=== PATIENT | male | born 1945 | race Caucasian/White ===

== ENCOUNTER → 2016-05-23 | Outpatient (CLI) | payer OTHER, MEDICARE ==
[2016-05-23 10:25] LABS: Partial Thromboplastin Time 26.2 sec (22.0-30.0); Prothrombin Time 10.6 sec (9.0-12.0)
[2016-05-23 10:35] LABS: Basophils % (A) 1 %; CHCM 34.2; Eosinophils # (A) 0.2 k/uL (0-0.7); Eosinophils % (A) 3 %; HCT 46.7 % (39.0-53.0); HDW 2.31; HGB 15.8 gm/dL (13.0-17.5); Luc # (Auto) 0.14; Luc % (Auto) 3; Lymphocytes # (A) 2.3 k/uL (1.0-4.8); Lymphocytes % (A) 43 %; MCH 31.7 pg (25.0-35.0); MCHC 33.7 g/dL (31.0-37.0); MCV 93.9 fL (80.0-100.0); Mean Platelet Volume 7.4; Monocytes # (A) 0.3 k/uL (0-1.0); Monocytes % (A) 6 %; Neutrophils # (A) 2.4 k/uL (1.3-7.7); Neutrophils % (A) 45 %; RBC 4.97 m/uL (4.30-5.90); RDW 12.2 % (11.5-15.5); WBC 5.3 k/uL (3.8-10.6); WBC (Perox) 5.45
[2016-05-23 10:37] LABS: ALT 56 U/L (21-72); AST 33 U/L (17-59); Alkaline Phosphatase 62 U/L (38-126); Anion Gap 10 mmol/L; Blood Urea Nitrogen 13 mg/dL (9-20); Calcium 9.7 mg/dL (8.4-10.2); Carbon Dioxide 30 mmol/L (22-30); Chloride 103 mmol/L (98-107); Cholesterol 165 mg/dL (<200); Glucose 90 mg/dL (74-99); HDL Cholesterol 46 mg/dL (40-60); Non-African American GFR(MDRD) >60 (>60 ml/min/1.73 sqM); Potassium 4.2 mmol/L (3.5-5.1); Sodium 143 mmol/L (137-145); Total Bilirubin 1.5 mg/dL (0.2-1.3); Triglycerides 49 mg/dL (<150)
[2016-05-23 10:57] LABS: Appearance,Urine Clear (Clear); Bilirubin,Urine Negative (Negative); Glucose,Urine (UA) Negative (Negative); Ketones,Urine Negative (Negative); Leukocyte Esterase,Urine Negative (Negative); Nitrite,Urine Negative (Negative); PH, Urine 7.5 (5.0-8.0); Protein,Urine Negative (Negative); UA Billing (MACRO vs. MICRO) CHEM; Urobilinogen,Urine <2.0 mg/dL (<2.0)
[2016-05-23 13:55] LABS: Erythrocyte Sedimentation Rate 5 mm/hr (0-15)
== END | disposition home or self-care (01) ==
LOC: LABPAT 09:43
PROVIDERS: ATTEND Orthopaedic Surgery
DX: Z01.812 Encounter for preprocedural laboratory examination (principal); Z12.5 Encounter for screening for malignant neoplasm of prostate
CPT/HCPCS: 80061; 80053; 85652; 85025; 85610; 85730; 81003; 87070; G0103

== ENCOUNTER 2016-06-05 09:35 | Inpatient (IN) | payer MEDICARE, OTHER ==
[2016-05-29 09:18] VITALS: BMI 26.4
[~2016-06-05 09:35] MED LIST: ACETAMINOPHEN TAB 500 MG TAB PO ONE; DEXAMETHASONE SOD PHOSPHATE 10 MG/ML 1 ML VIAL IV ONE; HYDROmorphone 1 MG/ML 1 ML SYRINGE IVP PRN; LIDOCAINE 1% 20 ML VIAL (10MG/ML) FOR IV START INTRADERMA PRN; MELOXICAM 7.5 MG TAB PO ONE; MIDAZOLAM 2 MG/2 ML VIAL IV PRN; ONDANSETRON 4 MG/2 ML VIAL IVP ONE; SCOPOLAMINE 1.5MG/72HR PATCH TRANSDERM ONE; TRANEXAMIC ACID 1,000 MG in SODIUM CHLORIDE 0.9% 100 ML IVPB ONE; ceFAZolin 2 GM in SODIUM CHLORIDE 0.9% 100 ML IVPB ONE
[2016-06-05] MEDS ORDERED: LIDOCAINE 1% 20 ML VIAL (10MG/ML) FOR IV START INTRADERMA ONE (10:24)
[2016-06-05] MEDS: LACTATED RINGERS 1,000 ML IV SCH (10:24)
[2016-06-05] MEDS ORDERED: fentaNYL (PF) 50 MCG/ML 2 ML AMP IV ONE ×2 (10:35)
[2016-06-05] MEDS ORDERED: MIDAZOLAM 2 MG/2 ML VIAL IVP ONE (10:35)
[2016-06-05] MEDS ORDERED: ROPIVACAINE 1,100 MG, SODIUM CHLORIDE 0.9% 330 ML MISCELLANE PRN ×2 (11:04)
--- NOTE | 2016-06-05 11:06 | P.ONQ ---
Anesthesiology Proc Note - PNB - Peripheral Nerve Block Performed Left Adductor Canal Infusion Procedure Start Time: 10:30 Procedure Stop Time: 10:45 Indication: Acute Post-Operative Pain, Analgesia Sedation Type: Sedate with meaningful contact maintained Preparation: Sterile Prep Position: Supine Catheter Depth at Skin (cm): 8 Catheter: Indwelling Needle Types: On-Q Needle Size: 100mm (4") Needle Gauge: 18 Technique: Ultrasound Injectate: 0.5% Ropivacaine (see comment for volume) Blood Aspirated: No Pain Paresthesia on Injection Noted: No Resistance on Injection: Normal Events: Uneventful and Well Tolerated
[2016-06-05] MEDS ORDERED: PHENYLEPHRINE-0.9% NACL SYG 1 MG/10 ML SYRINGE ONE (12:23)
[2016-06-05] MEDS ORDERED: ePHEDrine 50 MG/ML 1 ML AMP ONE (12:23)
[2016-06-05] MEDS ORDERED: PROPOFOL 10 MG/ML 20 ML VIAL IV ONE (12:23)
[2016-06-05] MEDS ORDERED: SODIUM CHLORIDE 0.9% 100 ML BAG ONE (12:23)
[2016-06-05] MEDS ORDERED: fentaNYL (PF) 50 MCG/ML 2 ML AMP ONE (12:23)
[2016-06-05] MEDS ORDERED: TRANEXAMIC ACID 1,000 MG/10 ML VIAL ONE (12:23)
[2016-06-05] MEDS ORDERED: MIDAZOLAM 2 MG/2 ML VIAL ONE (12:23)
[2016-06-05] MEDS ORDERED: LACTATED RINGERS 1,000 ML IV ONE ×2 (12:49→13:31)
[2016-06-05] MEDS ORDERED: ceFAZolin 3,000 MG in SODIUM CHLORIDE 0.9% IRRIGATIO 3,000 ML IRRIGATION ONE (12:50)
[2016-06-05] MEDS: ROPIVACAINE 246.25 MG, EPINEPHrine 0.5 MG, KETOROLAC 30 MG, cloNIDine HCL/PF 80 MCG, WA... MISCELLANE ONE ×10 (12:52→13:39)
--- NOTE | 2016-06-05 14:04 | P.OP ---
Date of Procedure: 06/05/16 Preoperative Diagnosis: Severe osteoarthritis of the left knee Postoperative Diagnosis: Severe osteoarthritis left knee Procedure(s) Performed: Left total knee arthroplasty Implants: Vallejo [employer] Nephew Oxinium femoral component size 6, left Vallejo [employer] Nephew Melita II left nonporous tibial baseplate size 6 [employer]le[employer] Nephew size 9 mm Legion XLPE high flexion articular insert, size 5-6 [employer]le[employer]hew Melita II resurfacing patellar component, 35 mm All components were cemented using Ministerio bone cement.. The articulation is ceramic on polyethylene. Anesthesia: spinal Surgeon: Kiel Scott Agri Business Agent #1: Keisha Elliott Estimated Blood Loss (ml): 100 Pathology: other (Bone and cartilage) Condition: stable Disposition: PACU Indications for Procedure: After failure of conservative treatment we discussed the surgical and nonsurgical treatment options at length. Patient wishes to proceed with a total knee arthroplasty. Complications specific to this procedure were discussed at length, including but not limited to infection, bleeding, stiffness , and nerve injury. Patient is aware of all these complications and informed consent was obtained Operative Findings: The operative findings are consistent with severe osteoarthritis of the left knee. It was also noted there was dark staining of the cartilage and synovium consistent with Ochronosis. There was also a large cyst in the proximal tibia. Description of Procedure: Patient was seen in the preoperative area consent was reviewed and operative site was marked with a skin marker. Patient was then brought to the operating room and given preoperative antibiotics intravenously. A spinal anesthetic was administered by the anesthesia department. A tourniquet was placed on the upper thigh and the lower extremity was prepped and draped in usual sterile fashion. A gram of transexamic acid was given. A universal timeout was then performed which confirmed the patient's name, surgical site, ALLERGIES, and consent. The lower extremity was then exsanguinated and tourniquet was inflated to 250 mmHg. A standard and anterior midline approach to the knee was performed. The skin and subcutaneous tissue was dissected down to the patellar tendon. A medial parapatellar arthrotomy was then performed. The knee was then extended, the patellar was everted, and the knee was again flexed. Anterior horns of both menisci were excised, and a release was performed to the posterior medial aspect of the knee. On gross visual inspection, there was complete loss of articular cartilage in the medial and patellofemoral joint spaces. There was also significant cartilage damage in the lateral compartment. There were multiple periarticular osteophytes which were then removed with a Ronguer. The cartilage and soft tissues were stained dark, consistent with Ochronosis. The femoral canal was then opened with the appropriate drill, and the intramedullary femoral cutting guide was then placed and set for 4 of valgus. The distal femoral cutting block was then pinned in place, and the distal femur was then cut. The cutting block was then removed and the cut was checked for flatness. Next, the sizing guide was then placed and set for 3 external rotation based off of the epicondylar axis and Whitesides line. After the femur was sized, the appropriate 4-in-1 cutting block was then pinned in place. The anterior condyles were cut without notching. The posterior and chamfer cuts were performed while protecting the collateral ligaments. The cutting block was then removed, and the femoral canal was plugged with autologous bone. Attention was then directed to the tibia. The remaining ACL was removed with a Ronguer, and the tibia was then gently subluxed forward with a large bent knee retractor. Any remaining menisci was excised. The posterior lateral corner was cauterized in order to cauterize the lateral geniculate artery. The extra medullary tibial cutting guide was then placed, set for the appropriate rotation , slope, and depth of resection. The proximal tibia cutting guide was then pinned in place. Proximal tibia was then cut and sized. There was a large cysts noted in the anterior aspect of the proximal tibia. The cyst measured approximately 2 x 2 centimeters and was contained. Next trials were then placed with the appropriate-sized insert. The knee was able to fully extend and flex to 130 and was stable throughout all range of motion. The knee was then extended, patella everted. Patella was then measured, and then using an osteotomy guide, the patella was cut at the appropriate level. The patella was then measured and drilled and the patella trial was then placed. The knee was then taken through range of motion with the patella trial and the patella tracked normally. The knee was then extended patella trial was then removed and the patella was everted. Knee was then flexed and lug holes were drilled through the femoral trial and the femoral trial was then removed. The tibial was then exposed, and the tibial broach guide was then pinned in place after it was set for the appropriate rotation to allow for the most coverage without overhang. The tibia was then broached. The cut surfaces of bone were then irrigated with pulsatile lavage. The posterior structures were injected with the ropivacaine solution. The knee was also irrigated with Irrisept solution. The components were then opened, the cement was mixed, and the components were then cemented in place. The cement was allowed to harden with the knee in full extension. While the cement was hardening, the remaining soft tissues were injected with the ropivacaine solution. After the cemented hardened. The tourniquet was released, and hemostasis was obtained. A second gram of transexamic acid was given. The knee was again irrigated. The knee was again taken through range of motion and found to be stable throughout all range of motion of 0-130, and the patella tracked normally. The fascia was then closed with #2 strata fix suture. The subcutaneous tissue was closed with 3-0 Vicryl and 3-0 strata fix. Dermabond tape was used for the skin, and the patient was placed in a sterile dressing. Patient was then transferred to recovery room in stable condition. The insurance administrative assistant LUIS MANUEL Rosales was required due the complexity surgery and the need for a skilled medical or surgical instrument maker. She assisted in positioning, draping , retraction, and closure of the wound.
[2016-06-05] MEDS ORDERED: ONDANSETRON 4 MG/2 ML VIAL IVP PRN (14:19)
[2016-06-05] MEDS ORDERED: NALOXONE 0.4 MG/ML 1 ML VIAL IV PRN (14:19)
[2016-06-05] MEDS ORDERED: HYDROmorphone 1 MG/ML 1 ML SYRINGE IVP PRN ×3 (14:19)
[2016-06-05] MEDS ORDERED: BISACODYL 10 MG SUPP RECTAL PRN (14:19)
[2016-06-05] MEDS ORDERED: DIAZEPAM 5 MG TAB PO PRN ×2 (14:19)
[2016-06-05] MEDS ORDERED: HYDROcodone/APAP 5-325MG 1 EACH TAB PO PRN (14:19)
[2016-06-05] MEDS ORDERED: MAGNESIUM HYDROXIDE 2,400 MG/10 ML CUP PO PRN (14:19)
--- NOTE | 2016-06-05 14:48 | XR ---
EXAMINATION TYPE: XR knee limited LT DATE OF EXAM: 06/05/2016 2:42 PM COMPARISON: NONE HISTORY: Post knee replacement TECHNIQUE: 2 view left tibia and fibula FINDINGS: There is placement tibial and femoral components. No acute fractures are evident. Postsurgi valeriy changes are within the knee joint space. IMPRESSION: No acute fracture post knee replacement
[2016-06-05] MEDS ORDERED: TESTOSTERONE TOPICAL SCH (18:00)
[2016-06-05] MEDS: SODIUM CHLORIDE 0.9% 1,000 ML IV SCH ×2 (18:13→21:31)
--- NOTE | 2016-06-05 20:08 | CONS ---
DATE OF CONSULTATION: 06/05/2016 REASON FOR CONSULTATION: Medical management requested by Dr. Scott. CONSULTATION: A very pleasant 71-year-old patient who follows with Dr. Bah. Chronic stable medical conditions include testosterone deficiency. Patient has undergone a left total knee arthroplasty. Postprocedure he is sitting up, comfortable. No chest pain or shortness of breath. No nausea or vomiting. Denies any cardiac history. REVIEW OF SYSTEMS: CONSTITUTIONAL: None. HEENT: None. RESPIRATORY: None. CARDIOVASCULAR: None. GASTROINTESTINAL: None. MUSCULOSKELETAL: Pain in the joints. DERMATOLOGIC: None. HEMATOLOGIC: None. LYMPHATIC: None. PSYCHIATRY: None. NEUROLOGICAL: None. PAST MEDICAL HISTORY: Osteoarthritis, skin removed from face. PAST SURGICAL HISTORY: Right hip replacement, shoulder arthroscopy. SOCIAL HISTORY: . 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 Alcohol occasionally. Does not smoke. FAMILY HISTORY: Pancreatic cancer. HOME MEDICATIONS: AndroGel 1% 5 grams topical daily, Aleve 220 mg p.o. q.12 p.r.n., multivitamin 1 tablet p.o. daily, Probiotic 1 capsule p.o. daily, cod liver oil 1 capsule p.o. daily, vitamin C 1000 mg p.o. daily, Arimidex 0.5 mg Saturday, Saturday and Saturday, Adrenotone 2 capsules p.o. daily. ALLERGIES: SHELLFISH. On examination, pulse 54, respirations 16, blood pressure 90/58, pulse ox 96% on room Air. GENERAL APPEARANCE: Average build, propped in bed, comfortable. EYES: Pupils equal. Conjunctivae normal. Oral cavity normal. NECK: JVD not raised. Mass not palpable. RESPIRATORY: Effort normal. Lungs are clear. CARDIOVASCULAR: First and second sounds normal. No edema. ABDOMEN: Soft, nontender. Liver and spleen not palpable. LYMPHATIC: No lymph node palpable in neck or axillae. PSYCHIATRY: Alert and oriented x3. Mood and affect normal. NEUROLOGICAL: Pupils equal. Cranial nerves grossly intact. EXTREMITIES: Left knee in a dressing. INVESTIGATIONS: No blood work from today. ASSESSMENT: 1. Left total knee arthroplasty. 2. Chronic testosterone deficiency. PLAN: Patient's AndroGel cream will be resumed. For DVT prophylaxis patient has been put on aspirin 325 mg p.o. b.i.d. Pain medications are same. Care was discussed with the patient. Thank you, Dr. Scott.
[2016-06-05] MEDS: ASPIRIN 325 MG TAB PO SCH (21:30)
[2016-06-05] MEDS: SENNOSIDES-DOCUSATE SODIUM 1 EACH TAB PO SCH (21:30)
[2016-06-05] MEDS: ceFAZolin 2 GM in SODIUM CHLORIDE 0.9% 100 ML IVPB SCH (21:30)
[2016-06-06] MEDS: LACTATED RINGERS 1,000 ML IV SCH (01:40)
[2016-06-06] MEDS: ceFAZolin 2 GM in SODIUM CHLORIDE 0.9% 100 ML IVPB SCH (05:02)
[2016-06-06 07:30] LABS: Basophils % (A) 0 %; CH 31.9; CHCM 33.9; Eosinophils % (A) 0 %; HCT 39.8 % (39.0-53.0); HDW 2.28; HGB 13.2 gm/dL (13.0-17.5); Luc # (Auto) 0.11; Luc % (Auto) 1; Lymphocytes # (A) 2.2 k/uL (1.0-4.8); Lymphocytes % (A) 19 %; MCH 31.3 pg (25.0-35.0); MCHC 33.1 g/dL (31.0-37.0); MCV 94.5 fL (80.0-100.0); Mean Platelet Volume 7.7; Monocytes # (A) 0.7 k/uL (0-1.0); Monocytes % (A) 6 %; Neutrophils # (A) 8.9 k/uL (1.3-7.7); Neutrophils % (A) 74 %; RBC 4.21 m/uL (4.30-5.90); RDW 12.2 % (11.5-15.5); WBC (Perox) 12.64
[2016-06-06] MEDS: HYDROcodone/APAP 5-325MG 1 EACH TAB PO PRN ×3 (08:24→22:32)
[2016-06-06] MEDS: ASPIRIN 325 MG TAB PO SCH ×2 (08:24→20:49)
[2016-06-06] MEDS: MELOXICAM 7.5 MG TAB PO SCH (08:24)
--- NOTE | 2016-06-06 09:12 | P.PN ---
Progress Note - Text . Postoperative day # 2 status post total knee arthroplasty, under spinal anesthesia, and adductor canal catheter placed for postoperative analgesia, currently at ropivacaine 0.2% 8 mL per hour and continuous infusion, catheter site local. There is no erythema, and there is no tenderness, visual analogue scale is 1-2 /10, Assessment and plan= Acute postoperative pain, adductor canal catheter for pain control, pain is well controlled we'll continue the same management.
--- NOTE | 2016-06-06 09:43 | P.PN ---
Subjective Principal diagnosis: Status post left total knee arthroplasty This is a pleasant 71-year-old gentleman who is status post left total knee arthroplasty. Today's postoperative day #1. The patient is doing quite well postoperatively. He's been up ambulating and his pain is well-controlled. He has no other complaints at this time. Denies lightheadedness or shortness of breath. Objective - Vital Signs Vital signs: Vital Signs Temp 98.5 F 06/06/16 07:51 Pulse 77 06/06/16 07:51 Resp 16 06/06/16 07:51 BP 118/74 06/06/16 07:51 Pulse Ox 97 06/06/16 01:02 Intake & Output 06/05/16 06/06/16 06/06/16 18:59 06:59 18:59 Intake Total 2781 900 Output Total 450 1600 Balance 2331 -700 Weight 90.718 kg Intake: IV 2301 900 Sodium Chloride 0.9% 1, 900 000 ml @ 100 mls/hr IV . Q10H MARTI Rx#:[id number] Oral 480 Output: Urine 350 1600 Estimated Blood Loss 100 Other: Voiding Method Urinal - Exam The patient does not appear in acute distress. Alert and orientated 3. Dressing is clean dry and intact. Incision appears fine with no erythema or active drainage. He is able to perform straight leg raise. Calf is soft and nontender. Good foot and ankle motion without difficulty. Sensation and circulatory status is intact. - Labs CBC & Chem 7: 06/06/16 06:52 Labs: Abnormal Lab Results - Last 24 Hours (Table) 06/06/16 Range/Units 06:52 WBC 12.0 H (3.8-10.6) k/uL RBC 4.21 L (4.30-5.90) m/uL Neutrophils # 8.9 H (1.3-7.7) k/uL Assessment and Plan (1) Status post left knee replacement Status: Acute (2) Primary osteoarthritis of left knee Status: Acute Plan: Continue routine postoperative care. Physical therapy and pain control. Anticoagulation with aspirin. Anticipate discharge to home with home care tomorrow.
[2016-06-06] MEDS: hydrOXYzine PAMOATE 25 MG CAP PO PRN ×2 (17:02→22:31)
[2016-06-06] MEDS ORDERED: ANASTROZOLE 1 MG TAB PO SCH (18:15)
[2016-06-06 19:24] VITALS: RESP 16
[2016-06-06] MEDS: SENNOSIDES-DOCUSATE SODIUM 1 EACH TAB PO SCH (20:20)
--- NOTE | 2016-06-06 20:32 | PN ---
DATE OF SERVICE: 06/06/2016 PRESENTING COMPLAINT: Left knee surgery. INTERVAL HISTORY: Patient is status post left knee surgery, doing well. I saw this patient earlier today. He was comfortable, sitting up. No chest pain or shortness of breath. No nausea or vomiting. Did tolerate his diet. Worked with Physical Therapy. Review of systems done for constitutional, cardiovascular, GI, pulmonary; relevant findings as above. Current medications are reviewed. On examination; temperature 98.5, pulse 77, respiration 16, blood pressure 118/74, pulse ox 97% on room air. GENERAL APPEARANCE: Sitting in bed, comfortable. EYES: Pupils equal. Conjunctivae normal. NECK: JVD not raised. Mass not palpable. RESPIRATORY: Effort normal. Lungs are clear. CARDIOVASCULAR: First and second sounds normal. No edema. ABDOMEN: Soft, nontender. Liver and spleen not palpable. PSYCHIATRY: Alert and oriented x3. Mood and affect normal. INVESTIGATIONS: White count 12, hemoglobin 13.2. ASSESSMENT: 1. Left total knee arthroplasty. 2. Chronic testosterone deficiency. 3. Leukocytosis, likely reactive to surgery. No evidence of infection. PLAN: Patient is doing well. Continue current medication and treatment plan.
[2016-06-07] MEDS: MELOXICAM 7.5 MG TAB PO SCH (08:21)
[2016-06-07] MEDS: hydrOXYzine PAMOATE 25 MG CAP PO PRN (08:22)
[2016-06-07] MEDS: HYDROcodone/APAP 5-325MG 1 EACH TAB PO PRN ×2 (08:22→16:40)
[2016-06-07] MEDS: ASPIRIN 325 MG TAB PO SCH (08:22)
[2016-06-07 08:30] VITALS: BP 148/84; PULSE 75; TEMP 97.1
--- NOTE | 2016-06-07 09:03 | P.DS ---
Providers Date of admission: 06/05/16 09:35 Expected date of discharge: 06/07/16 Attending physician: Kiel Scott Consults: 06/05/16 14:19 Consult Physician Routine Consulting Provider: Flavio De Consult Reason/Comments: medical management Do you want consulting provider notified?: Yes Primary care physician: Radha Bah - Discharge Diagnosis(es) (1) Status post left knee replacement Current Visit: Yes Status: Acute (2) Primary osteoarthritis of left knee Current Visit: Yes Status: Acute Hospital Course: This is a pleasant 71-year-old gentleman who was last seen in our office with complaints of left knee pain. Patient has known arthritis of the left knee and presented to discuss options. After discussion and consideration the patient elected to proceed with left total knee arthroplasty. Patient was seen preoperatively medically cleared for surgery by his primary care physician The patient was admitted on 06/05/2016 and underwent left total knee arthroplasty with Dr. Kiel Scott. The procedure was performed without complications or sequelae. The patient has done well postoperatively. His pain is well-controlled and he is moving well with physical therapy. He seen and evaluated at bedside today. His vital signs are stable. He is alert and orientated 3 and does not appear in acute distress. He denies any shortness of breath or lightheadedness. Dressing is clean dry and intact. Incision appears fine with no erythema or active drainage. Calf is soft and nontender. His good foot and ankle motion without difficulty. Sensation and circulatory status is intact. The patient is orthopedically stable for discharge to home today. Pertinent Studies: Laboratory Tests 06/06/16 06:52 WBC 12.0 H RBC 4.21 L Hgb 13.2 Hct 39.8 MCV 94.5 MCH 31.3 Patient Condition at Discharge: Good Plan - Discharge Summary New Discharge Prescriptions: Aspirin 325 mg PO BID #60 tab Hydrocodone/Acetaminophen [Sixes 5-325] 1 - 2 each PO Q6HR PRN #90 tab PRN Reason: Pain Sennosides-Docusate Sodium [Senokot-S] 2 tab PO DAILY #60 tablet Discharge Medication List Multivitamins, Thera [Multivitamin] 1 tab PO DAILY 04/05/15 [History] Ascorbic Acid [Vitamin C] 1,000 mg PO DAILY 06/21/15 [History] Cod Liver Oil 1 cap PO DAILY 06/21/15 [History] Adrenaltone Supplement 2 cap PO DAILY 05/29/16 [History] Anastrozole [Arimidex] 0.5 mg PO MOWEFR 05/29/16 [History] L.acidoph,Paracasei, B.lactis [Probiotic] 1 cap PO DAILY 05/29/16 [History] Naproxen Sodium [Aleve] 220 mg PO Q12HR PRN 05/29/16 [History] Testosterone [Androgel 1% Gel Packet] 5 gram TOPICAL DAILY 05/29/16 [History] Aspirin 325 mg PO BID #60 tab 06/07/16 [Rx] Hydrocodone/Acetaminophen [Sixes 5-325] 1 - 2 each PO Q6HR PRN #90 tab 06/07/16 [Rx] Sennosides-Docusate Sodium [Senokot-S] 2 tab PO DAILY #60 tablet 06/07/16 [Rx] Follow up Appointment(s)/Referral(s): Kiel Scott DO [Doctor of Osteopathic Medicine] - 2 Weeks Ambulatory/Diagnostic Orders: Continuous Passive Motion (CPM) Machine [DME.AMB1] Location: Determined By Patient Activity/Diet/Wound Care/Special Instructions: Home Care - [facility] - [phone] [facility] - [facility] - [phone] - call when you get home for delivery of CPM Walker - has at home Weightbearing as tolerated with a walker CPM daily Daily dressing changes, keep incision clean and dry [facility] with questions or concerns [phone] Discharge Disposition: HOME WITH HOME HEALTH SERVICES
--- NOTE | 2016-06-07 14:47 | US ---
EXAMINATION TYPE: US venous doppler duplex LE LT DATE OF EXAM: 06/07/2016 2:38 PM COMPARISON: NONE CLINICAL HISTORY: swelling, post total left knee 2 days ago, no h/o dvt. SIDE PERFORMED: Left VESSELS IMAGED: External Iliac Vein (EIV) Common Femoral Vein Deep Femoral Vein Greater Saphenous Vein * Femoral Vein Popliteal Vein Small Saphenous Vein * Proximal Calf Veins (* superficial vessels) Left Leg: Appears negative for DVT
--- NOTE | 2016-06-08 07:35 | PN ---
DATE OF SERVICE: 06/07/2016 PRESENTING COMPLAINT: Left knee surgery. INTERVAL HISTORY: This patient was seen by me earlier today. Doing well, comfortable, sitting up. Patient does complain of some swelling of the left leg. He was concerned so I ordered a Doppler ultrasound, which came back negative for DVT. Otherwise the patient is doing well. Review of systems done for constitutional, cardiovascular, GI, pulmonary; relevant findings as above. Current medications are reviewed. On examination, temperature 97.1, pulse 75, respiratory rate 16, blood pressure 148/84, pulse ox 99% on room air. GENERAL APPEARANCE: Sitting up in bed, comfortable. EYES: Pupils equal. Conjunctivae normal. NECK: JVD not raised. Mass not palpable. RESPIRATORY: Effort normal. Lungs are clear. CARDIOVASCULAR: First and second sounds normal. No edema. ABDOMEN: Soft, nontender. Liver and spleen not palpable. PSYCHIATRY: Alert and oriented x3. Mood and affect normal. EXTREMITIES: Some swelling of the left leg compared to the right. INVESTIGATIONS: Ultrasound negative for DVT. ASSESSMENT: 1. Left total knee arthroplasty. 2. Chronic testosterone deficiency. 3. Leukocytosis likely reactive to the surgery. No evidence of infection. 4. Some swelling of the left leg post surgical, as expected. Negative for deep venous thrombosis. Care was discussed with the patient. Medically okay to discharge.
== END 2016-06-07 16:45 | disposition home health service (06) | DRG 470 ==
LOC: 2ORMAIN 09:35 → 3SUR 14:17
PROVIDERS: ADMIT Orthopaedic Surgery; ATTEND Orthopaedic Surgery
PROC: 0SRD0J9 Replacement of Left Knee Joint with Synthetic Substitute, Cemented, Open Approach (ICD-10-PCS; principal; 2016-06-05 11:55)
DX: M17.12 Unilateral primary osteoarthritis, left knee (principal); E29.1 Testicular hypofunction; M79.89 Other specified soft tissue disorders; H91.90 Unspecified hearing loss, unspecified ear; Z96.641 Presence of right artificial hip joint
CPT/HCPCS: 85025; 88300; 94760

== ENCOUNTER 2019-12-03 | Emergency (ER) | payer MEDICARE, OTHER ==
--- NOTE | 2019-12-03 17:12 | ED ---
General Adult HPI - General Chief complaint: Allergic Reaction Stated complaint: Allergic Reaction Time Seen by Provider: 12/03/19 16:45 Source: patient, EMS, RN notes reviewed Mode of arrival: EMS Limitations: no limitations - History of Present Illness Initial comments: Patient is a pleasant 74-year-old male presenting to the emergency department after insect sting to his left foot. Patient was outside walking in the grass barefoot. Patient felt a sudden sting between his second and third toe. Patient states it was fairly uncomfortable at first. Patient states he felt lightheaded following this and adds that he appear like she might pass out. Patient was nauseated. Patient never lost consciousness. Patient did get somewhat red all over. Patient was given a Benadryl. Patient feels symptom- free at this point. No chest pain or dyspnea. No confusion. No weakness. does also admit the patient has had similar symptoms twice previously usually with medical procedures. - Related Data Home Medications Medication Instructions Recorded Confirmed Multivitamins, Thera [Multivitamin 1 tab PO DAILY 04/05/15 06/05/16 (formulary)] Ascorbic Acid [Vitamin C] 1,000 mg PO DAILY 06/21/15 06/05/16 Cod Liver Oil 1 cap PO DAILY 06/21/15 06/05/16 Adrenaltone Supplement 2 cap PO DAILY 05/29/16 06/05/16 Anastrozole [Arimidex] 0.5 mg PO MOWEFR 05/29/16 06/05/16 L.acidoph,Paracasei, B.lactis 1 cap PO DAILY 05/29/16 06/05/16 [Probiotic] Naproxen Sodium [Aleve] 220 mg PO Q12HR PRN 05/29/16 06/05/16 Testosterone [Androgel 1% Gel 5 gram TOPICAL DAILY 05/29/16 06/05/16 Packet] Previous Rx's Medication Instructions Recorded Aspirin 325 mg PO BID #60 tab 06/07/16 Hydrocodone/Acetaminophen [[place] 1 - 2 each PO Q6HR PRN #90 tab 06/07/16 5-325] Sennosides-Docusate Sodium 2 tab PO DAILY #60 tablet 06/07/16 [Senokot-S] Allergies Allergy/AdvReac Type Severity Reaction Status Date / Time shellfish derived [Shellfish] AdvReac Swelling Verified 12/03/19 16:43 Review of Systems ROS Statement: Those systems with pertinent positive or pertinent negative responses have been documented in the HPI. ROS Other: All systems not noted in ROS Statement are negative. 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 History of Any Multi-Drug Resistant Organisms: None Reported Past Surgical History: Joint Replacement, Orthopedic Surgery Additional Past Surgical History / Comment(s): ARTHROSCOPIC LT KNEE,SHOULDER ARTHROSCOPY,rt hip replacement Past Anesthesia/Blood Transfusion Reactions: No Reported Reaction Additional Past Anesthesia/Blood Transfusion Reaction / Comment(s): hx passing out if got up to quickly post op Past Psychological History: No Psychological Hx Reported Smoking Status: Never smoker Past Alcohol Use History: Occasional Past Drug Use History: None Reported - Past Family History Mother Family Medical History: Cancer Additional Family Medical History / Comment(s): PANCREATIC AT 85 Father Family Medical History: No Reported History Additional Family Medical History / Comment(s): AT 76,heart problems General Exam Limitations: no limitations General appearance: alert, in no apparent distress Head exam: Present: normocephalic Eye exam: Present: normal appearance, PERRL, EOMI. Absent: nystagmus ENT exam: Present: normal oropharynx Neck exam: Present: normal inspection Respiratory exam: Present: normal lung sounds bilaterally Cardiovascular Exam: Present: regular rate, normal rhythm Expanded Peripheral pulses: 2+: Radial (R), Radial (L), Dorsalis Pedis (R), Dorsalis Pedis (L) GI/Abdominal exam: Present: soft. Absent: distended, tenderness, pulsatile mass Extremities exam: Present: normal inspection Neurological exam: Present: alert, oriented X3, CN II-XII intact. Absent: motor sensory deficit Expanded Motor strength exam: RUE: 5, LUE: 5, RLE: 5, LLE: 5 Psychiatric exam: Present: normal affect, normal mood Skin exam: Present: normal color, other (Questionable tiny puncture wound near toes. No evidence of foreign body or infection.) Course Vital Signs 12/03/19 16:38 Temperature 97.8 F Pulse Rate 63 Respiratory 18 Rate Blood Pressure 114/85 O2 Sat by Pulse 98 Oximetry Medical Decision Making - Medical Decision Making Patient offered blood work and EKG and further evaluation however refuses. Patient feels his symptoms were related to whatever happened to his foot and states he is symptom-free right now. Symptoms were likely vasovagal for near syncopal episode and patient is in agreement with this. Disposition Clinical Impression: Near syncope Disposition: HOME SELF-CARE Condition: Stable Instructions (If sedation given, give patient instructions): Near Syncope (ED), Insect Bite or Sting (ED) Additional Instructions: Please follow-up with primary care physician in the next couple days for recheck. Return for pain or redness to the foot, feeling a. Pass out, chest pain or shortness of breath or confusion or weakness, worsening symptoms or other concerns. Is patient prescribed a controlled substance at d/c from ED?: No Referrals: Radha Bah DO [Primary Care Provider] - 1-2 days Time of Disposition: 17:12
== END 2019-12-03 17:38 | disposition home or self-care (01) ==
CPT/HCPCS: 99285

== ENCOUNTER 2022-12-26 07:38 | Day surgery (SDC) | payer MEDICARE, OTHER ==
[2022-12-19 15:40] VITALS: BMI 26.4
[~2022-12-26 07:38] MED LIST changes: -ACETAMINOPHEN TAB 500 MG TAB PO ONE; +ATROPINE OPHTH SOLN 1% 5ML BTL OPHTHALMIC PRN; -DEXAMETHASONE SOD PHOSPHATE 10 MG/ML 1 ML VIAL IV ONE; -HYDROmorphone 1 MG/ML 1 ML SYRINGE IVP PRN; +LACTATED RINGERS 1,000 ML IV SCH; +LIDOCAINE 1% (10MG/ML) FOR IV START INTRADERMA PRN; -LIDOCAINE 1% 20 ML VIAL (10MG/ML) FOR IV START INTRADERMA PRN; -MELOXICAM 7.5 MG TAB PO ONE; -MIDAZOLAM 2 MG/2 ML VIAL IV PRN; +MOXIFLOXACIN HCL 0.5% DROPS 3 ML BTL OP PRN; -ONDANSETRON 4 MG/2 ML VIAL IVP ONE; -SCOPOLAMINE 1.5MG/72HR PATCH TRANSDERM ONE; +TETRACAINE 0.5% OPHTH (PF) DROPS 4 ML BTL OP PRN; +TIMOLOL 0.5% OPHTH DROPS 5 ML BTL OP PRN; -TRANEXAMIC ACID 1,000 MG in SODIUM CHLORIDE 0.9% 100 ML IVPB ONE; -ceFAZolin 2 GM in SODIUM CHLORIDE 0.9% 100 ML IVPB ONE
[2022-12-26] MEDS: CYCLOPENTOLATE 1% OPHTH SOLN 2 ML BTL OP PRN ×3 (08:50→09:05)
[2022-12-26 08:53] VITALS: TEMP 97.2
[2022-12-26] MEDS: PHENYLEPHRINE 2.5% OPHTH DRP 2ML OP PRN ×3 (08:53→09:09)
[2022-12-26] MEDS ORDERED: MIDAZOLAM 2 MG/2 ML VIAL ONE (09:16)
[2022-12-26] MEDS ORDERED: fentaNYL (PF) 50 MCG/ML 2 ML AMP ONE (09:16)
[2022-12-26] MEDS ORDERED: BALANCED SALT IRRIG SOLN COMB2 15 ML IRRIG.SOLN IRRIGATION ONE (09:20)
[2022-12-26] MEDS ORDERED: LIDOCAINE 1% (PF) 10MG/ML VIAL MISCELLANE ONE (09:20)
[2022-12-26] MEDS ORDERED: HYALURONATE SODIUM INTRAOCULAR 1 EACH SYRINGE (12MG/ML) INTRAOCULA ONE (09:20)
[2022-12-26] MEDS ORDERED: EPINEPHrine (PF) 0.3 ML in BALANCED SALT IRRIG SOLN COMB2 500 ML IRRIGATION ONE (09:34)
--- NOTE | 2022-12-26 10:22 | P.OP ---
Date of Procedure: 12/26/22 Preoperative Diagnosis: NS Postoperative Diagnosis: same Procedure(s) Performed: PIOL, OS & Hydrus implant Implants: [id number] 19.75 & Hydrus implant Anesthesia: MAC Surgeon: Jean Claude Colon Pathology: none sent Condition: stable Disposition: same day Indications for Procedure: blurry vision and glaucoma Operative Findings: no complications
[2022-12-26 10:39] VITALS: BP 133/75; PULSE 52; RESP 16
--- NOTE | 2022-12-26 18:38 | OP ---
OPERATIVE REPORT DATE OF SERVICE : 12/26/2022 PROCEDURES PERFORMED: Phacoemulsification of cataract and intraocular lens implant of the right eye. PREOPERATIVE DIAGNOSIS: Nuclear sclerosis and primary open-angle glaucoma, mild stage. POSTOPERATIVE DIAGNOSIS: Nuclear sclerosis and primary open-angle glaucoma, mild stage. ANESTHESIA: Topical. ESTIMATED BLOOD LOSS: None. SPECIMENS TAKEN: None. NARRATIVE: After obtaining the appropriate consent, the patient was brought to the operating room. There, he was placed under cardiac monitoring, prepped and draped in the usual sterile manner. He was approached from his right temporal side and at the 11 o'clock position, an MVR blade was used to create a paracentesis port. At the 7 o'clock position, an additional paracentesis port running more tangentially to the corneal limbus was placed at this position. 1% Xylocaine MPF 50:50 mix with balanced salt solution was injected into the anterior chamber. This was followed by stabilization of the anterior chamber with Viscoat. A small amount of Viscoat was placed on the patient's eye and the patient was then asked to rotate his head approximately 45 degrees to his left and maintain a steady gaze in that general direction. A gonioprism was placed on the patient's eye and the trabecular meshwork was identified. A Hydrus Microstent was advanced into the anterior chamber through the 7 o'clock paracentesis and the device engaged the trabecular meshwork. Advancing slowly, the Hydrus stent was placed in Schlemm canal observing that there was no deviation from the canal while being delivered. The trailing end of the stent was disinserted from the insertion instrument and the open end of the stent was left in the anterior chamber, leaving approximately 30% of the trailing portion of that stent exposed. Re-examination of the angle was able to identify the stent in what appeared to be Schlemm canal through its entirety. The placement instrument was removed and the patient was then brought to the normal supine position. A 5.5 mm Sun ring inked with gentian meño was placed centrally over the Purkinje reflex and at the 9 o'clock position, a 2.75 boogie keratome was used to create a self-sealing corneal flap incision in a Langerman fashion. Through this opening, a cystotome was introduced to begin a continuous tear capsulorrhexis, which was then completed using the Utrata forceps. Hydrodissection and hydrodelineation of the lens were accomplished with balanced salt solution. Phacoemulsification of the lens utilizing phaco chop was accomplished in 17.75 seconds at 13% power. Additional Xylocaine MPF was instilled into the anterior chamber. This was followed by removal of the remaining cortical material under irrigation and aspiration as well as careful polishing of the posterior capsule in the capsule vacuum mode. Provisc was then used to stabilize the capsular bag and using both Vigo and Pepose capsule polishing instruments, the underside as well as the equator of the capsular bag were scraped for any remaining lens remnants. Once this was accomplished, the internal opening of the temporal incision was enlarged slightly with a boogie blade and a Bausch and Lomb crystal lens, model AO1UV, 19.75 diopter posterior chamber intraocular lens was inserted into the capsular bag without difficulty. The lens was rotated approximately 180 degrees with a Sinskey hook without any difficulties. Irrigation and aspiration under low vacuum was further able to illustrate no restrictions in rotation in either direction for over [address] The remaining viscoelastic was then removed from in and around the intraocular lens as well as the remaining material behind the lens and the posterior capsule. The eye was then brought to normal intraocular pressure through the paracentesis port. The wounds were tapped dry and Tisseel was used to confirm watertight integrity of all 3 incisions made on the corneal limbus. After 90 seconds, the patient then received two drops of 0.5% timolol followed by two drops of moxifloxacin as well as two drops of 1% atropine. He was then lightly patched and shielded in the usual manner. There were no complications from the procedure. He tolerated the procedure well and was returned to outpatient recovery in good condition. MMODL / IJN: [id number] /
== END 2022-12-26 11:04 | disposition home or self-care (01) ==
LOC: OR 07:38
PROVIDERS: ATTEND Ophthalmology
DX: H25.11 Age-related nuclear cataract, right eye (principal); H40.1131 Primary open-angle glaucoma, bilateral, mild stage; I10 Essential (primary) hypertension; Z79.899 Other long term (current) drug therapy
CPT/HCPCS: 66984; C1783; V2632; V2788; J2250; J0171; J3010; J2001

== ENCOUNTER 2023-03-27 08:40 | Day surgery (SDC) | payer MEDICARE, OTHER ==
[2023-03-25 08:59] VITALS: BMI 27.0
[~2023-03-27 08:40] MED LIST changes: -ATROPINE OPHTH SOLN 1% 5ML BTL OPHTHALMIC PRN
[2023-03-27] MEDS: CYCLOPENTOLATE 1% OPHTH SOLN 2 ML BTL OP PRN ×3 (09:18→09:30)
[2023-03-27] MEDS: PHENYLEPHRINE 2.5% OPHTH DRP 2ML OP PRN ×3 (09:21→09:33)
[2023-03-27 09:26] VITALS: TEMP 97.5
[2023-03-27] MEDS ORDERED: fentaNYL (PF) 50 MCG/ML 2 ML AMP ONE (10:48)
[2023-03-27] MEDS ORDERED: MIDAZOLAM 2 MG/2 ML VIAL ONE (10:48)
[2023-03-27] MEDS ORDERED: DUOVISC KIT (GREEN BOX) INTRAOCULA ONE (11:03)
[2023-03-27] MEDS ORDERED: BALANCED SALT IRRIG SOLN COMB2 15 ML IRRIG.SOLN INTRAOCULA ONE (11:03)
[2023-03-27] MEDS ORDERED: LIDOCAINE 1% (PF) 10MG/ML VIAL MISCELLANE ONE (11:04)
[2023-03-27] MEDS ORDERED: EPINEPHrine (PF) 0.3 ML in BALANCED SALT IRRIG SOLN COMB2 500 ML IRRIGATION ONE (11:06)
[2023-03-27] MEDS ORDERED: HYALURONATE SODIUM INTRAOCULAR 1 EACH SYRINGE (12MG/ML) INTRAOCULA ONE (11:23)
[2023-03-27] MEDS ORDERED: ATROPINE OPHTH SOLN 1% 5ML BTL LEFT EYE ONE (11:47)
--- NOTE | 2023-03-27 11:51 | P.OP ---
Date of Procedure: 03/27/23 Preoperative Diagnosis: NS & POAG Postoperative Diagnosis: same Procedure(s) Performed: PIOL, OS & Hydrus implant Implants: [id number] 20.00 Anesthesia: MAC Surgeon: Jean Claude Colon Pathology: none sent Condition: stable Disposition: same day Indications for Procedure: blurry vision and better glaucoma control Operative Findings: no complications
[2023-03-27 11:56] VITALS: RESP 18
[2023-03-27 12:20] VITALS: BP 147/90; PULSE 51
--- NOTE | 2023-03-29 10:24 | OP ---
OPERATIVE REPORT DATE OF SERVICE : 03/27/2023 PROCEDURES PERFORMED: Phacoemulsification of cataract and intraocular lens implant of the left eye with Hydrus stent implantation of the left eye. PREOPERATIVE DIAGNOSES: Nuclear sclerosis and primary open-angle glaucoma, mild stage. ANESTHESIA: Topical. ESTIMATED BLOOD LOSS: None. SPECIMEN TAKEN: None. NARRATIVE: After obtaining the appropriate consent, the patient was brought to the operating room. There, he was placed under cardiac monitoring, prepped and draped in the usual sterile manner. Using previously acquired corneal topography information, the axis of 174 degrees was identified and marked with a [employer] [facility] axis marker. A 5.5 mm Sun ring was placed on the center of the patient's cornea over the Purkinje reflex. He was approached from his left side and at the 5 o'clock position, an MVR blade was used to create a paracentesis port. Through this opening, 1% Xylocaine MPF 50:50 mix with balanced salt solution was injected into the anterior chamber. This was followed by trypan blue which was left in the eye for 90 seconds. This was irrigated away with balanced salt solution and Visco was then used to stabilize the anterior chamber. At the 3 o'clock position, a 2.5 mm keratome was used to create a self-sealing corneal flap incision. At the 1 o'clock position, an MVR blade was used to create a paracentesis port which was angled toward the nasal trabecular meshwork. The patient was then asked to rotate his head to his right about 45 degrees and maintain a gaze in the general direction. A gonioprism was placed on the patient's eye to identify the trabecular meshwork and a Hydrus stent injection tool was passed through the superior limbus paracentesis at 1 o'clock and angled towards the trabecular meshwork. A small incision was made with the tip of the instrument and the Hydrus device was deployed within the trabecular meshwork with no difficulty. However, on attempted release from the insertion device, there was some difficulty requiring multiple twisting manipulations to release the end of the Hydrus implant from the insertion tool. Some attempts to advance the Hydrus stent a little further within the trabecular meshwork were difficult and unable to be performed with either the insertion tool or a Sinskey hook. Therefore, a small [place]er vitreous forceps was used to advance the Hydrus stent and placed appropriately in the nasal trabecular meshwork. There was some bleeding as was expected with the insertion of the Hydrus implant. Once this was adequately placed, additional Viscoat was used to displace the blood over the area and a second look with a gonioprism over the angle identified proper position of the Hydrus stent within the trabecular meshwork. The patient was then rotated back to the normal supine position and a cystotome was used to begin a continuous tear capsulorrhexis which was completed using the Utrata forceps. Care was taken to ensure that the size of the rhexis was at least the size of the Sun ring previously placed on the patient's cornea. Hydrodissection and hydrodelineation of the lens were accomplished with balanced salt solution. Phacoemulsification of the lens was accomplished in 8.61 seconds at 11.8% power. Additional Xylocaine MPF was instilled into the anterior chamber. This was followed by removal of the remaining cortical material under irrigation and aspiration as well as careful polishing of the posterior capsule in capsule vacuum mode. Using a [place] anterior capsule polishing instrument, approximately 340 degrees of anterior capsule was cleaned of any remaining cortical tissue adherent to the capsule. The temporal incision was enlarged slightly and a Bausch and Lomb Trulign toric model [id number], 20 diopter posterior chamber intraocular lens was then inserted into the capsular bag without difficulty. The lens was spun at least 360 degrees in the clockwise and 180 degrees in a counter-clockwise direction and in alignment with the previously placed trin[place] at 174 degrees. The remaining viscoelastic was removed from in and around the intraocular lens under irrigation and aspiration and the lens was tamponaded slightly with the tip of the IA instrument to ensure less chance for rotation. The eye was then brought to normal intraocular pressure through the paracentesis port and Tisseel was used to confirm or to maintain watertight integrity. After about 90 seconds, 0.5% timolol followed by 0.5% moxifloxacin was placed on the patient's side. This was also followed by 1% atropine. He was then lightly patched and shielded in the usual manner. There were no complications from the procedure. He tolerated the procedure well and was returned to outpatient recovery in good condition. MMODL / IJN: [id number] /
== END 2023-03-27 12:23 | disposition home or self-care (01) ==
LOC: OR 08:40
PROVIDERS: ATTEND Ophthalmology
DX: H25.12 Age-related nuclear cataract, left eye (principal); H40.1121 Primary open-angle glaucoma, left eye, mild stage; C44.90 Unspecified malignant neoplasm of skin, unspecified; Z96.652 Presence of left artificial knee joint; Z96.643 Presence of artificial hip joint, bilateral; Z91.013 Allergy to seafood; I10 Essential (primary) hypertension; Z79.52 Long term (current) use of systemic steroids; Z79.01 Long term (current) use of anticoagulants; Z79.2 Long term (current) use of antibiotics; Z79.810 Long term (current) use of selective estrogen receptor modulators (SERMs); Z79.899 Other long term (current) drug therapy
CPT/HCPCS: 66991; C1783; V2787; C1780; J2250; J0171; J3010; J2001